=== PATIENT | female | born 1960 | race African-American/Black ===

== ENCOUNTER 2018-07-05 16:25 | Emergency (ER) | payer MEDICARE, MEDICAID ==
[~2018-07-05] VITALS: Ht 160 cm; Wt 78.0 kg
[~2018-07-05 16:25] MED LIST: ATOR40TA PO; CLOP75TA57 PO; ESOM40CA PO; HYDR-3164 PO; IBUP-1060 PO; LISI10TA2 PO; NAPR-695 PO; OXYC-317 PO; OXYC1TAB7 PO; TIZA4CAP PO
[2018-07-05 17:04] VITALS: BP 205/99
[2018-07-05] MEDS ORDERED: IV NORMAL SALINE 1000ML BAG 1,000 ML IV SCH (17:17)
--- NOTE | 2018-07-05 17:26 | PHYS DOC ---
Past Medical History Past Medical History: Arthritis, High Cholesterol, Hypertension, [place] Past Surgical History: Angioplasty, Hysterectomy, Tonsillectomy Additional Past Surgical Histo: with stent placement Smoking: Cigarettes Alcohol Use: Rarely Drug Use: Heroin (snort, no IV), Marijuana Adult General Chief Complaint Chief Complaint: HEADACHE HPI HPI Patient is a 57-year-old female who presents to the emergency department for evaluation. She states that she had the gradual onset of a global headache yesterday, and is also having some "asymmetry" of her left shoulder with some pain in her left shoulder area, radiating down to her anterior left chest. She denies any pleuritic pain, numbness, weakness, vision changes. She is noted to be hypertensive with a systolic blood pressure of about 200. She states that she takes losartan and did take her blood pressure medication this morning and has not missed doses recently. She denies any pleuritic pain or exertional pain , numbness or weakness. She has not had any abdominal pain or nausea or vomiting. There are no alleviating or exacerbating factors to her symptoms. Review of Systems Review of Systems Constitutional: Denies fever or chills [] Eyes: Denies change in visual acuity, redness, or eye pain [] HENT: Denies nasal congestion or sore throat [] Respiratory: Denies cough or shortness of breath [] Cardiovascular: No additional information not addressed in HPI [] GI: Denies abdominal pain, nausea, vomiting, bloody stools or diarrhea [] : Denies dysuria or hematuria [] Musculoskeletal: Denies back pain or joint pain [] Integument: Denies rash or skin lesions [] Neurologic: Denies focal weakness or sensory changes [] Endocrine: Denies polyuria or polydipsia [] All other systems were reviewed and found to be within normal limits, except as documented in this note. Current Medications Current Medications Current Medications Medications (Trade) Dose Ordered Sig/Suma Start Time Stop Time Status Last Admin Dose Admin Acetaminophen (Tylenol) 1,000 mg 1X ONCE 07/05/18 17:30 07/05/18 17:31 DC 07/05/18 17:30 1,000 MG Amlodipine Besylate (Norvasc) 5 mg 1X ONCE 07/05/18 18:00 07/05/18 18:01 DC Sodium Chloride 1,000 ml @ 100 mls/hr Q10H 07/05/18 17:17 07/06/18 03:16 07/05/18 17:17 100 MLS/HR Allergies Allergies Allergies Coded Allergies Type Severity Reaction Last Updated Verified No Known Drug Allergies 11/08/13 No Physical Exam Physical Exam PHYSICAL EXAM: CONSTITUTIONAL: Well developed, well nourished HEAD: normocephalic, atraumatic EENT: PERRL, EOMI. Conjunctivae normal color, sclerae non-icteric; moist mucous membranes. NECK: Supple, non-tender; no meningismus. LUNGS: Lungs CTA, breathing even and unlabored. Normal air movement. HEART: Regular rate and rhythm, no murmur CHEST: No deformity; non-tender ABDOMEN: The abdomen is soft, and non-tender, no masses or bruits. EXTREM: Normal ROM; no deformity, no calf tenderness. Normal pulses palpable in all extremities. There is no pedal edema. SKIN: No rash; no diaphoresis NEURO: Alert; normal speech and cognition; CN's grossly intact; strength grossly intact without focal deficit. Dtnwit-tugp-srcsrn and heel perry testing is normal. Sensation is grossly normal. There is no focal neurological deficit noted. BACK: No CVA TTP. Current Patient Data Vital Signs Vital Signs Date Time Temp Pulse Resp B/P (MAP) Pulse Ox O2 Delivery O2 Flow Rate FiO2 07/05/18 17:04 98.2 63 14 205/99 (134) 97 Room Air 98.2 Lab Values Laboratory Tests Test 07/05/18 17:31 White Blood Count 4.4 x10^3/uL (4.0-11.0) Red Blood Count 5.11 x10^6/uL (3.50-5.40) Hemoglobin 15.3 g/dL (12.0-15.5) Hematocrit 44.8 % (36.0-47.0) Mean Corpuscular Volume 88 fL (79-100) Mean Corpuscular Hemoglobin 30 pg (25-35) Mean Corpuscular Hemoglobin Concent 34 g/dL (31-37) Red Cell Distribution Width 14.2 % (11.5-14.5) Platelet Count 171 x10^3/uL (140-400) Neutrophils (%) (Auto) 65 % (31-73) Lymphocytes (%) (Auto) 24 % (24-48) Monocytes (%) (Auto) 9 % (0-9) Eosinophils (%) (Auto) 2 % (0-3) Basophils (%) (Auto) 1 % (0-3) Neutrophils # (Auto) 2.8 x10^3uL (1.8-7.7) Lymphocytes # (Auto) 1.0 x10^3/uL (1.0-4.8) Monocytes # (Auto) 0.4 x10^3/uL (0.0-1.1) Eosinophils # (Auto) 0.1 x10^3/uL (0.0-0.7) Basophils # (Auto) 0.0 x10^3/uL (0.0-0.2) Platelet Estimate Adequate (ADEQUATE) Large Platelets Present Sodium Level 140 mmol/L (136-145) Potassium Level 3.9 mmol/L (3.5-5.1) Chloride Level 103 mmol/L (98-107) Carbon Dioxide Level 28 mmol/L (21-32) Anion Gap 9 (6-14) Blood Urea Nitrogen 10 mg/dL (7-20) Creatinine 0.7 mg/dL (0.6-1.0) Estimated GFR (Cockcroft-Gault) 104.0 BUN/Creatinine Ratio 14 (6-20) Glucose Level 106 mg/dL (70-99) H Calcium Level 9.7 mg/dL (8.5-10.1) Magnesium Level 1.7 mg/dL (1.8-2.4) L Total Bilirubin 0.4 mg/dL (0.2-1.0) Aspartate Amino Transferase (AST) 18 U/L (15-37) Alanine Aminotransferase (ALT) 19 U/L (14-59) Alkaline Phosphatase 65 U/L (46-116) Creatine Kinase 134 U/L (26-192) Creatine Kinase MB (Mass) 0.8 ng/mL (0.0-3.6) Creatine Kinase MB Relative Index 0.6 % (0-4) Troponin I Quantitative < 0.017 ng/mL (0.000-0.055) C-Reactive Protein, Quantitative < 0.5 mg/L (0-3.3) SK-Oxb-T-Type Natriuretic Peptide 61 pg/mL (0-124) Total Protein 7.9 g/dL (6.4-8.2) Albumin 3.8 g/dL (3.4-5.0) Albumin/Globulin Ratio 0.9 (1.0-1.7) L Lipase 57 U/L (73-393) L Laboratory Tests 07/05/18 17:31 Laboratory Tests 07/05/18 17:31 EKG EKG [Normal sinus rhythm at a rate of 58 beats for minute, normal axis, normal intervals, nonspecific ST/T changes with probable left ventricular hypertrophy.] Radiology/Procedures Radiology/Procedures [PROCEDURE: PORTABLE CHEST 1V Exam: AP portable chest History: Dizziness, headache, shortness of breath. Comparison: July 03, 2015. Findings: The heart and mediastinal structures are within normal limits for size. Lungs are without infiltrate. No pleural effusion or pneumothorax is identified. Aortic atherosclerosis is present. Impression: 1. No acute cardiopulmonary process.] PROCEDURE: CT HEAD WO CONTRAST CT head without intravenous contrast History: Headache. Comparison: CT head July 03, 2015. Technique: Axial images are obtained of the head from the skull base through the vertex without IV contrast. Exposure: One or more of the following individualized dose reduction techniques were utilized for this examination: 1. Automated exposure control 2. Adjustment of the mA and/or kV according to patient size 3. Use of iterative reconstruction technique Findings: The ventricles are appropriate in size, shape, and location for the patient's age. No obvious intracranial mass, mass-effect, midline shift, hemorrhage or obvious acute infarction is identified. Basilar cisterns are patent. Bone windows demonstrate no acute calvarial abnormality. The visualized paranasal sinuses appear clear. Impression: No acute intracranial process. Please note that CT can be relatively insensitive to acute ischemic infarction for up to 24 hours after symptom onset. Course & Med Decision Making Course & Med Decision Making Pertinent Labs and Imaging studies reviewed. (See chart for details) 6:00 PM: The patient's condition remains relatively stable. Care will be turned over to Dr. Awad at shift change, pending labs and final disposition. Report given. Dr. Awad's note Receive patient at 1800. Agree with previous H&P. At 1900 patient was reevaluated, feeling much better. Given that the labs including CRP were normal along with an essentially normal head CT, we will discharge the patient with outpatient pain and nausea medication. Discussed findings and plan with patient who voiced understanding. All questions were answered.[] Dragon Disclaimer Dragon Disclaimer This electronic medical record was generated, in whole or in part, using a voice recognition dictation system. Departure Departure Impression: Primary Impression: Headache Disposition: 01 HOME, SELF-CARE Condition: GOOD Referrals: UNKNOWN PCP NAME (PCP) Patient Instructions: General Headache Without Cause Additional Instructions: Follow-up with your regular doctor in 2 days. If you do not have a regular doctor, a list has been provided for you have local low-cost clinics. Follow-up with one of them in 2 days. Drink plenty of fluids. At the onset of a headache try 1/4 teaspoon of iqra dissolved in water or juice. Use the medications as prescribed. Do not use any medications or drugs that are not prescribed for you , they may kill you. Return to the ER if worsening headache, or any other concerns Scripts Meloxicam (MELOXICAM) 7.5 Mg Tablet 7.5 MG PO DAILY, #20 TAB Prov: ELISA AWAD DO 07/05/18 Metoclopramide Hcl (REGLAN) 10 Mg Tablet 10 MG PO QIDACHS, #30 TAB 0 Refills Prov: ELISA AWAD DO 07/05/18 Problem Qualifiers Primary Impression: Headache Headache type: unspecified Headache chronicity pattern: unspecified pattern Intractability: not intractable Qualified Codes: R51 - Headache ABELARDO CREWS MD Jul 05, 2018 17:26 ELISA AWAD DO Jul 05, 2018 19:09
[2018-07-05] MEDS ORDERED: ACETAMINOPHEN 500 MG TABLET PO ONE (17:30)
--- NOTE | 2018-07-05 17:35 | RAD ---
CT head without intravenous contrast History: Headache. Comparison: CT head July 03, 2015. Technique: Axial images are obtained of the head from the skull base through the vertex without IV contrast. Exposure: One or more of the following individualized dose reduction techniques were utilized for this examination: 1. Automated exposure control 2. Adjustment of the mA and/or kV according to patient size 3. Use of iterative reconstruction technique Findings: The ventricles are appropriate in size, shape, and location for the patient's age. No obvious intracranial mass, mass-effect, midline shift, hemorrhage or obvious acute infarction is identified. Basilar cisterns are patent. Bone windows demonstrate no acute calvarial abnormality. The visualized paranasal sinuses appear clear. Impression: No acute intracranial process. Please note that CT can be relatively insensitive to acute ischemic infarction for up to 24 hours after symptom onset. Electronically signed by: Tristan Chávez MD (07/05/2018 5:31 PM) [email or web address]
--- NOTE | 2018-07-05 17:36 | RAD ---
Exam: AP portable chest History: Dizziness, headache, shortness of breath. Comparison: July 03, 2015. Findings: The heart and mediastinal structures are within normal limits for size. Lungs are without infiltrate. No pleural effusion or pneumothorax is identified. Aortic atherosclerosis is present. Impression: 1. No acute cardiopulmonary process. Electronically signed by: Tristan Chávez MD (07/05/2018 5:32 PM) [id number]
[2018-07-05 17:53] LABS: CALCIUM 9.7 mg/dL (8.5-10.1); CREATININE 0.7 mg/dL (0.6-1.0); POTASSIUM 3.9 mmol/L (3.5-5.1)
[2018-07-05 17:54] LABS: BASO % 1 % (0-3); EOS # 0.1 x10^3/uL (0.0-0.7); EOS % 2 % (0-3); HEMATOCRIT 44.8 % (36.0-47.0); HEMOGLOBIN 15.3 g/dL (12.0-15.5); LYMPH % 24 % (24-48); MEAN CORPUSCULAR HEMOGLOBIN 30 pg (25-35); MEAN CORPUSCULAR HGB CONC 34 g/dL (31-37); MEAN CORPUSCULAR VOLUME 88 fL (79-100); MONO # 0.4 x10^3/uL (0.0-1.1); MONO % 9 % (0-9); NEUT # 2.8 x10^3uL (1.8-7.7); NEUT % 65 % (31-73); PLATELET COUNT 171 x10^3/uL (140-400); RED BLOOD COUNT 5.11 x10^6/uL (3.50-5.40); RED CELL DISTRIBUTION WIDTH 14.2 % (11.5-14.5); WHITE BLOOD COUNT 4.4 x10^3/uL (4.0-11.0)
[2018-07-05] MEDS ORDERED: amLODIPine BESYLATE 5 MG TABLET PO ONE (18:00)
[2018-07-05 18:01] LABS: ALBUMIN 3.8 g/dL (3.4-5.0); ALBUMIN/GLOBULIN RATIO 0.9 (1.0-1.7); MAGNESIUM 1.7 mg/dL (1.8-2.4); TOTAL BILIRUBIN 0.4 mg/dL (0.2-1.0); TOTAL PROTEIN 7.9 g/dL (6.4-8.2)
[2018-07-05 18:27] LABS: PLT ESTIMATE ADEQUATE (ADEQUATE)
[2018-07-05] MEDS ORDERED: METO10TA81 PO (19:09)
[2018-07-05] MEDS ORDERED: MELO7.5T29 PO (19:09)
--- NOTE | 2018-07-06 07:18 | EKG ---
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
== END 2018-07-05 19:17 | disposition home or self-care (01) ==
LOC: ER 16:25
DX: R51 Headache (principal); M25.512 Pain in left shoulder; R42 Dizziness and giddiness; R06.02 Shortness of breath; E78.00 Pure hypercholesterolemia, unspecified; I10 Essential (primary) hypertension; I25.2 Old myocardial infarction; F17.210 Nicotine dependence, cigarettes, uncomplicated; Z95.5 Presence of coronary angioplasty implant and graft
CPT/HCPCS: 36415; 70450; 71045; 80053; 82553; 83690; 83735; 83880; 84484; 85025; 86140; 93005; 96360; 99284; J7030

== ENCOUNTER 2020-01-23 15:33 | Emergency (ER) | payer MEDICARE, MEDICAID ==
[~2020-01-23] VITALS: Ht 160 cm; Wt 79.0 kg
[~2020-01-23 15:33] MED LIST changes: +BUPR1FIL PO; +CLON0.1T PO; +DIAZEPAM10 MG PO; +LOSA100T14 PO; +MELO7.5T29 PO; +METO10TA81 PO; +QUET25TA5 PO
--- NOTE | 2020-01-23 15:54 | EKG ---
[facility] [address] [place] [address] Test Date: 2020-01-23 Test Time: 15:48:35 Pat Name: STEPH RICO Department: Room: Gender: F [employer]isher [employer]: GUDELIA : 1960 Requested By: NAYELY MCGRATH Order Number: [id number] Reading MD: Melchor Asher Measurements Intervals [place] Rate: 61 P: 49 NM: 154 QRS: 54 QRSD: 90 T: 42 QT: 414 QTc: 418 Interpretive Statements SINUS RHYTHM NONSPECIFIC ST-T WAVE CHANGES. Electronically Signed On 01-25-2020 16:29:12 CDT by Melchor Asher
[2020-01-23] MEDS ORDERED: MORPHINE SULFATE 2 MG/ML VIAL. IV/SQ PRN (16:00)
[2020-01-23] MEDS ORDERED: ASPIRIN 325 MG TABLET PO ONE (16:00)
[2020-01-23] MEDS ORDERED: NITROGLYCERIN SUBLINGUAL 0.4 MG BOTTLE OF 25. SL PRN (16:00)
--- NOTE | 2020-01-23 16:20 | PHYS DOC ---
Past Medical History Past Medical History: Arthritis, High Cholesterol, Hypertension, [place] Past Surgical History: Angioplasty, Hysterectomy, Tonsillectomy Additional Past Surgical Histo: with stent placement Smoking Status: Current Every Day Smoker Alcohol Use: Rarely Drug Use: Heroin, Marijuana Social History Narrative: LAST USED MARIJUANA AROUND General Adult EDM: Chief Complaint: CHEST PAIN HPI: HPI: Patient is a 59 year old female with a history of PA, hypertension, high cholesterol, who presents to the ED today with multiple complaints. I walked into the room and patient's first complaint was low back pain. Patient describe s this as pressure, she states is been there for a while. She rates the pain as mild to moderate depending on what activity she is doing. She next started complaining about lesions of on her skin that she has had for couple weeks. Patient states sometimes her skin is itchy especially around the exterior vagina and groin region. She states she is already been seen by the PCP for this vaginal problem and was put on medications. On asking patient she was listed as her chest pain for chief complain she states she does she have chest pain and is not giving much information. Patient wonders around the conversation stating we need to check her labs on her back. She states she has this little thing on her left chest area that she want us to feel. She states she has pain when she pushes her left substernal chest region. She states this pain has been there for the last 2 months. She describes the pain as sharp and rates the pain as 10 out of 10. She is unable to describe anything exacerbating or relieving the pain. Patient is currently a poor historian wandering around Review of Systems: Review of Systems: Constitutional: Denies fever or chills. [] Eyes: Denies change in visual acuity. [] HENT: Denies nasal congestion or sore throat. [] Respiratory: Denies cough or shortness of breath. [] Cardiovascular: Reports chest pain GI: Denies abdominal pain, nausea, vomiting, bloody stools or diarrhea. [] : Denies dysuria. [] Musculoskeletal: Reports low back pain Integument: Reports rash Neurologic: Denies headache, focal weakness or sensory changes. [] Psychiatric: Denies depression or anxiety. [] Heart Score: HEART Score for Chest Pain: HEART Score for Chest Pain Response (Comments) Value History Slighlty/Non-Suspicious 0 ECG Normal 0 Age >45 - < 65 1 Risk Factors >3 Risk Factors or Hx CAD 2 Troponin < Normal Limit 0 Total 3 Risk Factors: Risk Factors: DM, Current or recent (<one month) smoker, HTN, HLP, family history of CAD, obesity. Risk Scores: Score 0 - 3: 2.5% MACE over next 6 weeks - Discharge Home Score 4 - 6: 20.3% MACE over next 6 weeks - Admit for Clinical Observation Score 7 - 10: 72.7% MACE over next 6 weeks - Early Invasive Strategies Current Medications: Current Medications Medications (Trade) Dose Ordered Sig/Suma Start Time Stop Time Status Last Admin Dose Admin Aspirin (Cipriano Aspirin) 325 mg 1X ONCE 01/23/20 16:00 01/23/20 16:01 DC Morphine Sulfate (Morphine Sulfate) 2 mg PRN Q15MIN PRN 01/23/20 16:00 01/24/20 15:59 Nitroglycerin (Nitrostat) 0.4 mg PRN Q5MIN PRN 01/23/20 16:00 01/24/20 15:59 Allergies: Allergies: Allergies Coded Allergies Type Severity Reaction Last Updated Verified No Known Drug Allergies 02/19/19 No Physical Exam: PE: Constitutional: Well developed, well nourished, no acute distress, non-toxic appearance. [] HENT: Normocephalic, atraumatic, bilateral external ears normal, oropharynx moist, no oral exudates, nose normal. [] Eyes: PERRLA, EOMI, conjunctiva normal, no discharge. [] Neck: Normal range of motion, no tenderness, supple, no stridor. [] Cardiovascular:Heart rate regular rhythm, no murmur [] Lungs & Thorax: Bilateral breath sounds clear to auscultation [] Abdomen: Bowel sounds normal, soft, no tenderness, no masses, no pulsatile masses. [] Skin: Warm, dry, no erythema, no rash. [] Back: No tenderness, no CVA tenderness. [] Extremities: No tenderness, no cyanosis, no clubbing, ROM intact, no edema. [] Neurologic: Alert and oriented X 3, normal motor function, normal sensory function, no focal deficits noted. [] Psychologic: Flat affect, patient has flight of ideas on her symptoms Current Patient Data: Vital Signs: Vital Signs Date Time Temp Pulse Resp B/P (MAP) Pulse Ox O2 Delivery O2 Flow Rate FiO2 01/23/20 15:35 98.2 65 16 145/77 (99) 100 Room Air 98.2 EKG: EK interpreted by Dr. Vance sinus rhythm with ST elevation on V 4, V5, V6. Ekg similar to 07/05/2018[] Radiology/Procedures: Radiology/Procedures: []PROCEDURE: LUMBAR SPINE 2-3V EXAM: AP, lateral and lumbosacral spot views of the lumbar spine DATE: 01/23/2020 3:58 PM INDICATION: Reason: pain / Spl. Instructions: / History: COMPARISON: No Prior FINDINGS: The purposes of this report there are 6 nonrib-bearing lumbar-type vertebral bodies with small disc between L6-S1. Disc heights are preserved otherwise. Vertebral body heights are preserved. No spondylolisthesis. Mild facet degenerative changes at L3-4 and below. Moderate colonic stool content. Mild rightward curvature of the lumbar spine. IMPRESSION: 1. Transitional lumbosacral anatomy as above. 2. No evidence for acute fracture or subluxation. Electronically signed by: Navjot Brown MD (01/23/2020 4:20 PM) [id number] DICTATED and SIGNED BY: NAVJOT BROWN MD DATE: 01/23/20 1620 PROCEDURE: PORTABLE CHEST 1V Study: CR PORTABLE CHEST 1V Indication: Chest pain. Comparison: 07/05/2018 Findings: No pneumothorax, lobar consolidation or pleural effusion. Ill-defined opacity within the right upper lung projects over the posterior aspect of the fifth rib. Similar configuration of the james. Unchanged cardiomediastinal silhouette. Vascular calcifications. Impression: Ill-defined opacity within the right upper lung. Though an infectious infiltrate or scarring is a consideration, eventual CT of the chest is recommended to exclude an underlying mass. Electronically signed by: ASH BIRD MD (01/23/2020 4:23 PM) [id number] DICTATED and SIGNED BY: ASH BIRD MD DATE: 01/23/20 1623 PROCEDURE: CT CHEST WO CONTRAST Exam: CT of chest without contrast INDICATION: Chest pain, mass lung TECHNIQUE: Sequential axial images through the chest obtained without IV contrast. Sagittal and coronal reformatted images were reconstructed from the axial data and reviewed. Comparisons: Chest x-ray same day FINDINGS: Visualized portion of the thyroid are unremarkable. No enlarged mediastinal lymph nodes are identified. Heart size is normal. Mild coronary artery calcium lesions are noted. Thoracic aorta has a normal course and caliber. Pulmonary artery is not enlarged. Airways are patent. Several groundglass nodules noted in the lungs, for example 7 mm nodule in the right upper lobe image 69. Multilobed spiculated nodule in the right upper lung series 3 image 27 measuring approximately 1.7 cm. Semisolid nodule in the left lower lobe series 3 image 136 measuring approximately 1.6 cm. No pleural effusion or thickening. Visualized upper abdomen is unremarkable. No suspicious osseous lesions or acute fractures. IMPRESSION: 1. Multilobulated spiculated nodule in the right upper lung measuring 1.7 cm concerning for primary lung neoplasm. 2. Several other nodules coding groundglass and semisolid nodules as described above. Exposure: One or more of the following in the visualized dose reduction techniques were utilized for this examination: 1. Automated exposure control 2. Adjustment of the MA and/or KV according to patient size 3. Use of iterative of reconstructive technique Electronically signed by: Liz Castaneda MD (01/23/2020 6:01 PM) [id number] DICTATED and SIGNED BY: LIZ CASTANEDA MD DATE: 01/23/201800 Course & Med Decision Making: Course & Med Decision Making Pertinent Labs and Imaging studies reviewed. (See chart for details) This is a 59-year-old female patient presenting to the ED today with multiple complaints including low back pain, exterior vaginal itching, chest pain. Please see HPI. EKG similar to 2018, troponin is normal, lumbar x-ray is negative, CBC, CMP, no acute findings. UA noted for UTI. CT of the chest noted for multilobulated spiculated nodule in the right upper lung measuring 1.7 cm concerning for primary lung neoplasm. Several other nodules coding groundglass and semisolid nodules Patient was started on Rocephin and azithromycin. Spoke with Dr. Barakat who accepted patient for admission COVID19 test pending Patient signed out GISELL Moseley Disclaimer: Lorelei Disclaimer: This electronic medical record was generated, in whole or in part, using a voice recognition dictation system. Departure Departure Impression: Primary Impression: Chest pain Qualified Codes: R07.9 - Chest pain, unspecified Additional Impressions: Person under investigation for COVID-19 Lung nodule Cocaine abuse Disposition: 07 AGAINST MEDICAL ADVICE Condition: STABLE Referrals: UNKNOWN PCP NAME (PCP) Justicifation of Admission Dx: Justifications for Admission: Justification of Admission Dx: N/A NAYELY MCGRATH APRN Jan 23, 2020 16:20
--- NOTE | 2020-01-23 16:23 | RAD ---
EXAM: AP, lateral and lumbosacral spot views of the lumbar spine DATE: 01/23/2020 3:58 PM INDICATION: Reason: pain / Spl. Instructions: / History: COMPARISON: No Prior FINDINGS: The purposes of this report there are 6 nonrib-bearing lumbar-type vertebral bodies with small disc between L6-S1. Disc heights are preserved otherwise. Vertebral body heights are preserved. No spondylolisthesis. Mild facet degenerative changes at L3-4 and below. Moderate colonic stool content. Mild rightward curvature of the lumbar spine. IMPRESSION: 1. Transitional lumbosacral anatomy as above. 2. No evidence for acute fracture or subluxation. Electronically signed by: Navjot Hudson MD (01/23/2020 4:20 PM) [id number]
--- NOTE | 2020-01-23 16:26 | RAD ---
Study: CR PORTABLE CHEST 1V Indication: Chest pain. Comparison: 07/05/2018 Findings: No pneumothorax, lobar consolidation or pleural effusion. Ill-defined opacity within the right upper lung projects over the posterior aspect of the fifth rib. Similar configuration of the james. Unchanged cardiomediastinal silhouette. Vascular calcifications. Impression: Ill-defined opacity within the right upper lung. Though an infectious infiltrate or scarring is a consideration, eventual CT of the chest is recommended to exclude an underlying mass. Electronically signed by: ASH BIRD MD (01/23/2020 4:23 PM) [id number]
[2020-01-23 16:33] LABS: BILIRUBIN,URINE MODERATE (NEG); CLARITY,URINE CLEAR; COLOR,URINE AMBER; NITRITE,URINE NEGATIVE (NEG); PROTEIN,URINE 30 mg/dL (NEG-TRACE)
[2020-01-23 16:41] LABS: BARBITURATES NEG (NEG); BENZODIAZEPINES POS (NEG); CANNABINOIDS NEG (NEG); COCAINE POS (NEG); METHADONE NEG (NEG); OPIATES NEG (NEG); PHENCYCLIDINE NEG (NEG)
[2020-01-23 16:42] LABS: AMPHETAMINE/METHAMPHETAMINE NEG (NEG)
[2020-01-23 16:43] LABS: BACTERIA,URINE MODERATE /HPF (0-FEW); SQUAMOUS EPITHELIAL CELL,UR MOD /LPF
[2020-01-23 17:08] LABS: BASO % 1 % (0-3); EOS # 0.1 x10^3/uL (0.0-0.7); EOS % 2 % (0-3); HEMATOCRIT 43.4 % (36.0-47.0); HEMOGLOBIN 14.7 g/dL (12.0-15.5); LYMPH # 1.1 x10^3/uL (1.0-4.8); LYMPH % 24 % (24-48); MEAN CORPUSCULAR HEMOGLOBIN 29 pg (25-35); MEAN CORPUSCULAR HGB CONC 34 g/dL (31-37); MEAN CORPUSCULAR VOLUME 87 fL (79-100); MONO # 0.3 x10^3/uL (0.0-1.1); MONO % 7 % (0-9); NEUT % 67 % (31-73); PLATELET COUNT 253 x10^3/uL (140-400); RED CELL DISTRIBUTION WIDTH 13.9 % (11.5-14.5); WHITE BLOOD COUNT 4.5 x10^3/uL (4.0-11.0)
[2020-01-23 17:19] LABS: PROTHROMBIN TIME PATIENT 13.7 SEC (11.7-14.0)
[2020-01-23 17:23] LABS: CALCIUM 9.8 mg/dL (8.5-10.1); CREATININE 0.9 mg/dL (0.6-1.0); GFR 77.3; POTASSIUM 4.1 mmol/L (3.5-5.1)
[2020-01-23 17:30] LABS: ALBUMIN 3.6 g/dL (3.4-5.0); ALBUMIN/GLOBULIN RATIO 0.8 (1.0-1.7); MAGNESIUM 1.7 mg/dL (1.8-2.4); TOTAL BILIRUBIN 0.3 mg/dL (0.2-1.0); TOTAL PROTEIN 7.9 g/dL (6.4-8.2)
[2020-01-23 17:44] LABS: CREATINE KINASE 51 U/L (26-192)
--- NOTE | 2020-01-23 18:05 | RAD ---
Exam: CT of chest without contrast INDICATION: Chest pain, mass lung TECHNIQUE: Sequential axial images through the chest obtained without IV contrast. Sagittal and coronal reformatted images were reconstructed from the axial data and reviewed. Comparisons: Chest x-ray same day FINDINGS: Visualized portion of the thyroid are unremarkable. No enlarged mediastinal lymph nodes are identified. Heart size is normal. Mild coronary artery calcium lesions are noted. Thoracic aorta has a normal course and caliber. Pulmonary artery is not enlarged. Airways are patent. Several groundglass nodules noted in the lungs, for example 7 mm nodule in the right upper lobe image 69. Multilobed spiculated nodule in the right upper lung series 3 image 27 measuring approximately 1.7 cm. Semisolid nodule in the left lower lobe series 3 image 136 measuring approximately 1.6 cm. No pleural effusion or thickening. Visualized upper abdomen is unremarkable. No suspicious osseous lesions or acute fractures. IMPRESSION: 1. Multilobulated spiculated nodule in the right upper lung measuring 1.7 cm concerning for primary lung neoplasm. 2. Several other nodules coding groundglass and semisolid nodules as described above. Exposure: One or more of the following in the visualized dose reduction techniques were utilized for this examination: 1. Automated exposure control 2. Adjustment of the MA and/or KV according to patient size 3. Use of iterative of reconstructive technique Electronically signed by: Liz Gagnon MD (01/23/2020 6:01 PM) [id number]
[2020-01-23] MEDS ORDERED: AZITHRMYCN 500MG IVPB FOR OMNI 250 ML IV ONE (19:00)
[2020-01-23] MEDS ORDERED: cefTRIAXone IV Push 1 GM VIAL. IVP ONE (19:00)
[2020-01-23 20:35] VITALS: BP 199/91
== END 2020-01-23 20:35 | disposition left against medical advice (07) ==
LOC: ER 15:33
DX: R07.2 Precordial pain (principal); Z20.828 Contact with and (suspected) exposure to other viral communicable diseases; R91.1 Solitary pulmonary nodule; F14.10 Cocaine abuse, uncomplicated; M54.5 Low back pain; E78.00 Pure hypercholesterolemia, unspecified; I10 Essential (primary) hypertension; I25.2 Old myocardial infarction; F17.200 Nicotine dependence, unspecified, uncomplicated; Z95.5 Presence of coronary angioplasty implant and graft; Z90.710 Acquired absence of both cervix and uterus
CPT/HCPCS: 36415; 71045; 71250; 72100; 80053; 80307; 81001; 82553; 83735; 83880; 84443; 84484; 85025; 85610; 87086; 93005; 96365; 96375; 99285; J0456; J0696; U0003

== ENCOUNTER 2020-02-10 22:14 | Emergency (ER) | payer MEDICARE, MEDICAID ==
[~2020-02-10] VITALS: Ht 160 cm; Wt 77.2 kg
[2020-02-10 22:28] VITALS: BP 135/70
--- NOTE | 2020-02-11 00:07 | PHYS DOC ---
Past Medical History Past Medical History: Arthritis, High Cholesterol, Hypertension, [place] Past Surgical History: Angioplasty, Hysterectomy, Tonsillectomy Additional Past Surgical Histo: with stent placement Smoking Status: Current Every Day Smoker Alcohol Use: None Drug Use: Heroin, Marijuana General Adult EDM: Chief Complaint: DIZZY/LIGHT HEADED HPI: HPI: Patient is a 59 year old female presents with the chief complaint of dizziness. Patient states onset 2 hours prior to arrival and sudden. Patient states room was spinning. Patient denies any associated nausea vomiting headache chest pain. At the time of exam patient states dizziness greatly improved. Patient with no focal neurological abnormalities. Review of Systems: Review of Systems: Constitutional: Denies fever or chills. [] Eyes: Denies change in visual acuity. [] HENT: Denies nasal congestion or sore throat. [] Respiratory: Denies cough or shortness of breath. [] Cardiovascular: Denies chest pain or edema. [] GI: Denies abdominal pain, nausea, vomiting, bloody stools or diarrhea. [] : Denies dysuria. [] Musculoskeletal: Denies back pain or joint pain. [] Integument: Denies rash. [] Neurologic: Denies headache, focal weakness or sensory changes. [positive dizziness] Endocrine: Denies polyuria or polydipsia. [] Lymphatic: Denies swollen glands. [] Psychiatric: Denies depression or anxiety. [] Heart Score: Risk Factors: Risk Factors: DM, Current or recent (<one month) smoker, HTN, HLP, family history of CAD, obesity. Risk Scores: Score 0 - 3: 2.5% MACE over next 6 weeks - Discharge Home Score 4 - 6: 20.3% MACE over next 6 weeks - Admit for Clinical Observation Score 7 - 10: 72.7% MACE over next 6 weeks - Early Invasive Strategies Allergies: Allergies: Allergies Coded Allergies Type Severity Reaction Last Updated Verified No Known Drug Allergies 02/19/19 No Physical Exam: PE: Constitutional: Well developed, well nourished, no acute distress, non-toxic appearance. [] HENT: Normocephalic, atraumatic, bilateral external ears normal, oropharynx moist, no oral exudates, nose normal. [] Eyes: PERRLA, EOMI, conjunctiva normal, no discharge. [] Neck: Normal range of motion, no tenderness, supple, no stridor. [] Cardiovascular:Heart rate regular rhythm, no murmur [] Lungs & Thorax: Bilateral breath sounds clear to auscultation [] Abdomen: Bowel sounds normal, soft, no tenderness, no masses, no pulsatile masses. [] Skin: Warm, dry, no erythema, no rash. [] Back: No tenderness, no CVA tenderness. [] Extremities: No tenderness, no cyanosis, no clubbing, ROM intact, no edema. [] Neurologic: Alert and oriented X 3, normal motor function, normal sensory function, no focal deficits noted. [] Psychologic: Affect normal, judgement normal, mood normal. [] Current Patient Data: Vital Signs: Vital Signs Date Time Temp Pulse Resp B/P (MAP) Pulse Ox O2 Delivery O2 Flow Rate FiO2 02/10/20 22:28 97.5 57 14 135/70 (91) 95 Room Air 97.5 EKG: EKG: [] Radiology/Procedures: Radiology/Procedures: [] Course & Med Decision Making: Course & Med Decision Making Pertinent Labs and Imaging studies reviewed. (See chart for details) Basic labs and ekg ordered EKG within normal limitis. Advised by nursing patient would like to leave. Labs not drawn. Patient signed out AMA. Lorelei Disclaimer: Lorelei Disclaimer: This electronic medical record was generated, in whole or in part, using a voice recognition dictation system. Departure Departure Impression: Primary Impression: Dizziness Disposition: HOME, SELF-CARE Referrals: UNKNOWN PCP NAME (PCP) Justicifation of Admission Dx: Justifications for Admission: Justification of Admission Dx: N/A BEBA HENDRIX DO Feb 11, 2020 00:07
== END 2020-02-11 | disposition left against medical advice (07) ==
LOC: ER 22:14
DX: R42 Dizziness and giddiness (principal); E78.00 Pure hypercholesterolemia, unspecified; I10 Essential (primary) hypertension; I25.2 Old myocardial infarction; F17.200 Nicotine dependence, unspecified, uncomplicated
CPT/HCPCS: 99283

== ENCOUNTER 2020-12-06 19:33 | Emergency (ER) | payer MEDICARE, MEDICAID ==
[~2020-12-06] VITALS: Ht 160 cm; Wt 74.0 kg
[~2020-12-06 19:33] MED LIST changes: +LISI10TA16 PO; -LISI10TA2 PO
[2020-12-06 19:35] VITALS: BP 143/80
== END 2020-12-06 20:20 | disposition left against medical advice (07) ==
LOC: ER 19:33
DX: M79.671 Pain in right foot (principal); Z53.21 Procedure and treatment not carried out due to patient leaving prior to being seen by health care provider

== ENCOUNTER → 2021-01-06 | Outpatient (CLI) | payer MEDICARE, MEDICAID ==
--- NOTE | 2021-01-06 17:49 | RAD ---
STUDY: CT of the right lower extremity without contrast INDICATION: Right foot pain. Talus fracture. COMPARISON: Right ankle radiographs 12/25/2020 TECHNIQUE: Axial CT imaging of the right lower extremity performed without contrast. Coronal and sagi ttal reformats were obtained. One or more of the following individualized dose reduction techniques were utilized for this examinat ion: 1. Automated exposure control 2. Adjustment of the mA and/or kV according to patient size 3. Use of iterative reconstruction technique. FINDINGS: No acute or subacute fracture seen throughout the forefoot or midfoot. The calcaneus is intact. No de finitive fracture of the talus. Tiny focus of mineralization along the dorsal/lateral margin of the t alar neck is favored chronic, image 22 series 5. No talar dome impaction deformity. Ununited, obliquely oriented distal fibular fracture with mild callus formation. The fracture cleft i s diastatic more distally up to 5 mm, image 6 series 8. Additional chronic small focus of mineralizat ion at the tip of the lateral malleolus. Posterior malleolus fracture is partially united with a smal l area of fusion more medially as seen on images 28 through 32 series 4 and image 50 series 2. Chroni c deformity of the medial malleolus and chronic foci of ossification at the tip of the medial malleol us. Osseous remodeling of the medial malleolus partially surrounding the posterior tibial tendon. Scattered arthrosis predominantly mild to borderline moderate in severity. Incomplete assessment of t he tendons by technique but there is no evidence for full-thickness disruption or displacement of the major tendons extending along the ankle. Edematous soft tissues mainly at the lateral ankle. IMPRESSION: 1. Ununited, obliquely oriented and mildly displaced Gil type B fibular fracture. Small amount of surrounding callus. Partially united posterior malleolus fracture. Chronic deformity of the medial ma lleolus. No fracture of the talus or fracture elsewhere throughout the foot. 2. Though not fully evaluated, no evidence for full-thickness tendon disruption or tendon displaceme nt. 3. Scattered arthrosis mostly mild to borderline moderate in severity. Electronically signed by: ASH BIRD MD (01/06/2021 5:47 PM) [facility]
== END ==
LOC: CT 15:19
PROVIDERS: ATTEND Physician Assistant
DX: S92.191A Other fracture of right talus, initial encounter for closed fracture (principal); X58.XXXA Exposure to other specified factors, initial encounter; Y93.89 Activity, other specified; Y92.89 Other specified places as the place of occurrence of the external cause; Y99.8 Other external cause status
CPT/HCPCS: 73700

== ENCOUNTER 2021-12-04 19:38 | Emergency (ER) | payer MEDICARE, MEDICAID ==
[~2021-12-04] VITALS: Ht 167.6 cm; Wt 65.9 kg
[2021-12-04] MEDS ORDERED: MORPHINE SULFATE 4 MG/ML INJ. IM ONE (21:00)
[2021-12-04] MEDS ORDERED: BACL10TA PO (21:27)
--- NOTE | 2021-12-04 21:27 | PHYS DOC ---
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 She also describes chest soreness, as if she had slept "funny." Patient reports she has an active pain contract with her primary care provider and has an appointment with her oncologist on Tuesday. However, her pain was unbearable today. She denies any new symptoms or other complaints. Review of Systems: Review of Systems: ROS negative or noncontributory except as mentioned in HPI. Heart Score: C/O Chest Pain: Yes HEART Score for Chest Pain: HEART Score for Chest Pain Response (Comments) Value History Slighlty/Non-Suspicious 0 ECG Normal 0 Age >45 - < 65 1 Risk Factors >3 Risk Factors or Hx CAD 2 Total 3 Risk Factors: Risk Factors: Current smoker, HTN, HLD Risk Scores: Score 0 - 3: 2.5% MACE over next 6 weeks - Discharge Home Score 4 - 6: 20.3% MACE over next 6 weeks - Admit for Clinical Observation Score 7 - 10: 72.7% MACE over next 6 weeks - Early Invasive Strategies Current Medications: Current Medications Medications (Trade) Dose Ordered Sig/[facility] Start Time Stop Time Status Last Admin Dose Admin Baclofen (Lioresal) 10 mg 1X ONCE 12/04/21 21:30 12/04/21 21:31 12/04/21 20:54 10 MG Morphine Sulfate (Morphine Sulfate) 4 mg 1X ONCE 12/04/21 21:00 12/04/21 21:01 DC 12/04/21 20:55 4 MG Allergies: Allergies: Allergies Coded Allergies Type Severity Reaction Last Updated Verified No Known Drug Allergies 02/19/19 No Physical Exam: PE: Constitutional: Thin, chronically ill-appearing, appears older than stated age. HENT: Normocephalic, atraumatic, bilateral external ears normal, nose normal. Eyes: EOMI, conjunctiva normal, no discharge. Neck: Normal range of motion, no stridor. Skin: Warm, dry, no erythema, no rash. Back: No stepoff, no midline tenderness. Extremities: No tenderness, no cyanosis, no clubbing, ROM intact, no edema. Neurologic: Alert and oriented x4, normal motor function, normal sensory function, no focal deficits noted. Current Patient Data: Vital Signs: Vital Signs Date Time Temp Pulse Resp B/P (MAP) Pulse Ox O2 Delivery O2 Flow Rate FiO2 12/04/21 21:35 75 22 217/102 (140) 97 Room Air 12/04/21 20:55 20 97 Room Air 12/04/21 20:31 70 20 199/93 (128) 97 Room Air 12/04/21 20:29 70 20 190/106 (134) 97 Room Air 12/04/21 19:40 98.6 96 18 186/93 (124) 98 Room Air 98.6 EKG: EKG: EKG Interpreted by Dr. Stallings at 1956: Regular rate and rhythm 74 bpm with no ectopic beats. QT 396 ms/QTc 445 ms. No STEMI. Course & Med Decision Making: Course & Med Decision Making Pertinent Labs and Imaging studies reviewed. (See chart for details) Is a 61-year-old female with lung cancer metastasizing to spine who presents with back pain. Patient does have a pain contract with her primary care provi emily. She was provided with morphine and baclofen here in the emergency department. At this time, though she is complaining of chest soreness, she does not wish to have any blood work done. EKG was without specific abnormalities. Did discuss risks of deferring troponin testing at this time, to which she verbalized understanding. Patient states her pain is much improved. She does have an appointment with her oncologist on Tuesday, which I advise she keep. I also advised that she schedule an appointment with her primary care provider, who controls her pain medication. Return precautions were provided. Patient understands and is agreeable to discharge plan. Lorelei Disclaimer: Lorelei Disclaimer: This electronic medical record was generated, in whole or in part, using a voice recognition dictation system. Departure Departure Impression: Primary Impression: Back pain Qualified Codes: M54.6 - Pain in thoracic spine; G89.29 - Other chronic pain Additional Impressions: Lung cancer metastatic to bone Elevated blood pressure reading Disposition: HOME / SELF CARE / HOMELESS Condition: IMPROVED Referrals: UNKNOWN PCP NAME (PCP) Patient Instructions: Bone Metastases Additional Instructions: EMERGENCY DEPARTMENT GENERAL DISCHARGE INSTRUCTIONS Thank you for coming to [facility] Emergency Department (ED) today and trusting us with you care. We trust that you had a positive experience in our Emergency Department. If you wish to speak to the department management, you may call the director at . YOUR FOLLOW UP INSTRUCTIONS ARE FOLLOWS: 1. Follow up with your primary care doctor. If you do not have a primary doctor, please ask for a resource list of physicians or clinics that may be able to assist you with follow up care. 2. The emergency provider has interpreted your imaging studies, if any were ordered. The radiology philosophy specialist also reviewed them. If there is a change in the findings, you will be notified in 48 hours when at all possible. 3. If a lab test or culture has been done, your results will be reviewed and you will be notified if you need a change in treatment. 4. Follow instructions verbalized to you and refer to the printouts if needed. ADDITIONAL INSTRUCTIONS AND INFORMATION: 1. Your care today has been supervised by a physician who is specially trained in emergency care. Many problems require more than one evaluation for a complete diagnosis and treatment. We recommend that you schedule your follow up appointment as recommended to ensure complete treatment of you illness or injury. If you are unable to obtain follow up care and continue to have a problem, or if your condition worsens, we recommend that you return to the ED. 2. We are not able to safely determine your condition over the phone nor are we able to give sound medical advice over the phone. For these safety reasons, if you call for medical advice we will ask you to come to the ED for further evaluation. 3. If you have any questions regarding these discharge instructions please call the ED at . SAFETY INFORMATION: In the interest of safety, wellness, and injury prevention; we encourage you to wear your seat belt, if you smoke; quite smoking, and we encourage family to use a protective helmet for bicycling and other sporting events that present an increased risk for head injury. IF YOUR SYMPTOMS WORSEN OR NEW SYMPTOMS DEVELOP, OR YOU HAVE CONCERNS ABOUT YOUR CONDITION; OR IF YOUR CONDITION WORSENS WHILE YOU ARE WAITING FOR YOUR FOLLOW UP APPOINTMENT; EITHER CONTACT YOUR PRIMARY CARE DOCTOR, THE PHYSICIAN WHOSE NAME AND NUMBER YOU WERE GIVEN, OR RETURN TO THE ED IMMEDIATELY. Scripts Baclofen (BACLOFEN) 10 Mg Tablet 1 TAB PO TID, #30 TAB 0 Refills Prov: OSMAR REAL 12/04/21 OSMAR REAL Dec 04, 2021 21:27
[2021-12-04] MEDS ORDERED: BACLOFEN 10 MG TABLET. PO ONE (21:30)
[2021-12-04 21:35] VITALS: BP 217/102
--- NOTE | 2021-12-05 04:27 | EKG ---
[facility] [address] [place] [address] Test Date: 2021-12-04 Test Time: 19:55:00 Pat Name: STEPH RICO Department: Room: Gender: F Quantitative [employer]st Marketing: : 1960 Requested By: FÉLIX ROJAS Order Number: [id number] Reading MD: Melchor Asher Measurements Intervals [place] Rate: 74 P: 53 RI: 138 QRS: 44 QRSD: 90 T: 44 QT: 396 QTc: 445 Interpretive Statements SINUS RHYTHM MILD NON SPECIFIC ST CHANGES Electronically Signed On 12-09-2021 17:48:30 CDT by Melchor Asher
== END 2021-12-04 22:15 | disposition home or self-care (01) ==
LOC: ER 19:38
DX: M54.6 Pain in thoracic spine (principal); G89.29 Other chronic pain; I10 Essential (primary) hypertension; E78.00 Pure hypercholesterolemia, unspecified; I25.2 Old myocardial infarction; F17.200 Nicotine dependence, unspecified, uncomplicated; Z95.5 Presence of coronary angioplasty implant and graft; Z90.710 Acquired absence of both cervix and uterus; Z85.118 Personal history of other malignant neoplasm of bronchus and lung
CPT/HCPCS: 96372; 99283; J2270; 93005